=== PATIENT | female | born 1940 | race Caucasian/White ===

== ENCOUNTER → 2022-06-12 | Outpatient (CLI) | payer MEDICARE ==
--- NOTE | 2022-06-12 14:14 | BD ---
EXAMINATION TYPE: Axial Bone Density DATE OF EXAM: 06/12/2022 COMPARISON: NONE CLINICAL HISTORY: 81 years old Female. ICD-10 CODE: M85.80 OTH DISRD OF BONE DENSITY Height: 61 Weight: 167 FRAX RISK QUESTIONS: History of Fracture in Adulthood: YES RT HIP 2020 Secondary Osteoporosis: NO Rheumatoid Arthritis: NO RISK FACTORS HISTORY OF: Hip Fracture (Right): YES When: 2020 Surgery to Hip(right): YES When: 2020 Active: YES Diet low in dairy products/other sources of calcium: NO Postmenopausal woman: YES Lost more than 2 inches in height since high school: YES 4 INCHES Frequent falls: NO Poor Health: NO MEDICATIONS: Thyroid Medications: YES Which medication: Levothyroxine How Lon+ YEARS Additional Medications: YES CHOLESTEROL , REFLUX ,WATER PILL , MEMORY MED EXAM MEASUREMENTS: Bone mineral densitometry was performed using the [employer] System. Bone mineral density as measured about the Lumbar spine is: ----- L1-L4(G/cm2): 1.139 T Score Values are as follows: ----- L1: -0.3 ----- L2: -0.2 ----- L3: 0.0 ----- L4: -1.0 ----- L1-L4: -0.3 Bone mineral density BASELINE Bone mineral density about the L hip (g/cm2): 0.669 T Score values are as follows: -----L Neck: -2.8 -----L Total: -2.7 Bone mineral BASELINE FRAX%s: The graph provided illustrates a 29.6% chance for a major osteoporotic fx and a 10.4% chance for the hips probability for fx in 10 years time. IMPRESSION: Osteoporosis (T Score less than -2.5). There is increased fracture risk and therapy is usually indicated based on age. Re-Screen 1-2 years. NOTE: T-SCORE=SD OF THE YOUNG ADULT MEAN.
== END | disposition home or self-care (01) ==
LOC: RADBDWWP 12:32
PROVIDERS: ATTEND Family Medicine
DX: M81.0 Age-related osteoporosis without current pathological fracture (principal); Z78.0 Asymptomatic menopausal state
CPT/HCPCS: 77080

== ENCOUNTER → 2022-07-17 | Outpatient (CLI) | payer MEDICARE ==
[2022-07-17 14:21] VITALS: BP 131/69; PULSE 97; RESP 16; TEMP 97.7; BMI 30.4
== END ==
LOC: BARWHC3 13:47
PROVIDERS: ATTEND Surgery
DX: Z53.9 Procedure and treatment not carried out, unspecified reason (principal)
CPT/HCPCS: 99211

== ENCOUNTER 2022-07-31 10:02 | Day surgery (SDC) | payer MEDICARE ==
[2022-07-31 10:41] VITALS: TEMP 98.2
[2022-07-31] MEDS: LACTATED RINGERS 1,000 ML IV SCH ×2 (10:42→10:49)
[2022-07-31] MEDS ORDERED: LIDOCAINE 2% INJ 20 MG/ML (2 ML VIAL) ONE (10:50)
[2022-07-31] MEDS ORDERED: PROPOFOL 10 MG/ML 20 ML VIAL IV ONE (10:50)
--- NOTE | 2022-07-31 10:57 | P.GSHP ---
History of Present Illness H&P Date: 07/31/22 Chief Complaint: GERD, belching 82-year-old female here today for upper endoscopy. Patient with history of chronic reflux. History of previous Kristina-en-Y gastric bypass. Was seen recently in the clinic with complaints of frequent belching. No abdominal pain. Denies dysphagia currently. Patient had a upper GI showing presbyesophagus and hiatal hernia. Past Medical History Past Medical History: Atrial Fibrillation, Cancer, CVA/TIA, Dementia, Deep Vein Thrombosis (DVT), GERD/Reflux, GI Bleed, Hyperlipidemia, Hypertension, Memory Impairment, Osteoarthritis (OA), Thyroid Disorder Additional Past Medical History / Comment(s): Pt has been belches alot and having abdominal pain, DVT bilateral legs removed chemically, thought may have had a past TIA but not for certain, possible lower GI bleed, frequent urination, hiatal hernia, chronic R knee pain and currently receiving physical therapy, fairly significant alzheimer's disease. History of Any Multi-Drug Resistant Organisms: None Reported Past Surgical History: Bariatric Surgery, Orthopedic Surgery, Tonsillectomy Additional Past Surgical History / Comment(s): Kristina en Y/gastric bypass 1999/[place],. right hip fracture repair ORIF/with hardware (pins) Past Anesthesia/Blood Transfusion Reactions: No Reported Reaction Additional Past Anesthesia/Blood Transfusion Reaction / Comment(s): Slow to wake and confusion post op Smoking Status: Former smoker - Past Family History Mother Family Medical History: CVA/TIA Father Additional Family Medical History / Comment(s): of alcoholism Medications and Allergies Home Medications Medication Instructions Recorded Confirmed Type Donepezil HCl [Aricept ODT] 5 mg PO 1200 06/22/22 07/31/22 History Levothyroxine Sodium [Synthroid] 100 mcg PO QAM 06/22/22 07/31/22 History Pantoprazole [Protonix] 40 mg PO 1200 06/22/22 07/31/22 History Simvastatin [Zocor] 20 mg PO HS 06/22/22 07/31/22 History hydroCHLOROthiazide 25 mg PO 1200 06/22/22 07/31/22 History Ascorbic Acid [Vitamin C] 2,000 mg 1200 07/26/22 07/31/22 History Cholecalciferol (Vitamin D3) 2,000 mg PO 1200 07/26/22 07/31/22 History [Vitamin D3 (50 Mcg = 2000 Iu) Chew Tab] [place]-3/Dha/Epa/Fish Oil [Fish Oil 2,000 each PO 1200 07/26/22 07/31/22 History 1,000 mg Softgel] Vitamin E (Dl,Tocopheryl Acet) 400 mg PO 1200 07/26/22 07/31/22 History [Vitamin E (400 Iu = 180 mg)] Allergies Allergy/AdvReac Type Severity Reaction Status Date / Time dexamethasone AdvReac Rash/Hives Verified 07/31/22 10:32 Surgical - Exam Vital Signs Temp Pulse Resp BP Pulse Ox 98.2 F 103 H 20 172/87 100 07/31/22 10:39 07/31/22 10:39 07/31/22 10:39 07/31/22 10:39 07/31/22 10:39 Physical exam: General: Well-developed, well-nourished HEENT: Normocephalic, sclerae nonicteric Abdomen: Nontender, nondistended Extremities: No edema Neuro: Alert and oriented Assessment and Plan (1) GERD (gastroesophageal reflux disease) Narrative/Plan: Will proceed with upper endoscopy. Current Visit: Yes Status: Acute Code(s): K21.9 - GASTRO-ESOPHAGEAL REFLUX DISEASE WITHOUT ESOPHAGITIS SNOMED Code(s): 146582396
--- NOTE | 2022-07-31 11:04 | P.PCN ---
Date of Procedure: 07/31/22 Procedure(s) Performed: Preoperative Dx: GERD, belching Postoperative Dx: Minimal gastritis Procedure: EGD with Bx Anesthesia: Sedation Endoscopist: Dr. Calvo Specimens: Cardia Endoscopic Procedure: The patient was on the endoscopy table in the left decubitus position. The Olympus gastroscope was inserted into the oropharynx and passed under direct visualization to the gastrojejunostomy. Both limbs of the jejunum appeared normal without evidence of stricture or ulceration. The anastomosis was patent. There was minimal inflammation in the cardia of the stomach. A biopsy was taken. There was no definite hiatal hernia seen. The esophagus appeared slightly tortuous but was otherwise normal. The patient was then taken to the recovery room in stable condition per anesthesia guidelines. Recommendations: Await biopsy results. Resume diet.
[2022-07-31 11:10] VITALS: RESP 14
[2022-07-31 11:23] VITALS: BP 131/86; PULSE 96
== END 2022-07-31 11:42 | disposition home or self-care (01) ==
LOC: ORWHC2ENDO 10:02
PROVIDERS: ATTEND Surgery
DX: K29.50 Unspecified chronic gastritis without bleeding (principal); K22.89 Other specified disease of esophagus; K21.9 Gastro-esophageal reflux disease without esophagitis; Z98.0 Intestinal bypass and anastomosis status; Z98.84 Bariatric surgery status; I48.91 Unspecified atrial fibrillation; Z86.73 Personal history of transient ischemic attack (TIA), and cerebral infarction without residual deficits; F03.90 Unspecified dementia, unspecified severity, without behavioral disturbance, psychotic disturbance, mood disturbance, and anxiety; Z86.718 Personal history of other venous thrombosis and embolism; Z87.19 Personal history of other diseases of the digestive system; I10 Essential (primary) hypertension; E78.5 Hyperlipidemia, unspecified; E07.9 Disorder of thyroid, unspecified; Z79.890 Hormone replacement therapy; Z87.81 Personal history of (healed) traumatic fracture; Z98.890 Other specified postprocedural states; Z87.891 Personal history of nicotine dependence; Z82.3 Family history of stroke; Z63.72 Alcoholism and drug addiction in family; Z79.899 Other long term (current) drug therapy; Z88.8 Allergy status to other drugs, medicaments and biological substances
CPT/HCPCS: 88305; 43239; J2704; J2001

== ENCOUNTER → 2022-09-26 | Outpatient (CLI) | payer MEDICARE ==
--- NOTE | 2022-10-30 12:49 | EM ---
30 Day Event monitor note: Patient wore an event monitor for 16.3 days from 09/26/2022 through 10/26/2022. Findings: Patient's baseline heart rate was atrial fibrillation. There were no signficant ventricular tachycardia episodes. There were no significant pauses greater than 2 seconds. There were a total of 112 patient activated and majority automatically captured events corresponding with atrial fibrillation with frequent RVR heart rates in the 110-150 range. Majority of heart rates in the 90s to 100 range. Conclusions: 30 day event monitor with only 16.3 days of wear time showing 100% A. fib with heart rates 90s, occasionally RVR 110-150. Patient activated events corresponding with A. fib. [facility]
== END | disposition home or self-care (01) ==
LOC: RADECHMAIN 08:05
PROVIDERS: ATTEND Family Medicine
DX: I48.91 Unspecified atrial fibrillation (principal)
CPT/HCPCS: 93270